=== PATIENT | female | born 1975 | race Hispanic/Latino ===

== ENCOUNTER 2016-12-03 09:24 | Day surgery (SDC) | payer OTHER ==
[2016-12-03] MEDS ORDERED: PEPCID PO NR (10:00)
[2016-12-03] MEDS ORDERED: VERSED IV NR (10:00)
[2016-12-03] MEDS ORDERED: NACL 0.9% 1000 ML 1,000 ML IV SCH (10:00)
[2016-12-03] MEDS ORDERED: SUBLIMAZE ONE ×2 (10:02→15:12)
[2016-12-03] MEDS ORDERED: DIPRIVAN 10 MG/ML IV ONE (10:02)
[2016-12-03] MEDS ORDERED: MARCAINE-EPI 0.25%-1:200,000 INFILTRATI ONE ×2 (10:50→15:12)
[2016-12-03] MEDS ORDERED: DEPO-MEDROL ONE (10:50)
--- NOTE | 2016-12-03 10:59 | Anesthesia Day of Surgery ---
Anesthesia Day of Surgery - Day of Surgery Patient Examined: Yes Patient H&P Reviewed: Yes Patient is NPO: Yes
[2016-12-03] MEDS ORDERED: TRANSDERM-SCOP TD NR (11:00)
--- NOTE | 2016-12-03 11:00 | Anesthesia Consultation ---
Anesthesia Consult and Med Hx Date of service: 12/03/16 - Airway Anesthetic Teeth Evaluation: Good ROM Head & Neck: Adequate Mental/Hyoid Distance: Adequate Mallampati Class: Class I Intubation Access Assessment: Good - Pulmonary Exam CTA: Yes - Cardiac Exam Cardiac Exam: RRR - Pre-Operative Health Status ASA Pre-Surgery Classification: ASA2 Proposed Anesthetic Plan: General - Pulmonary Hx Smoking: Yes (STOPPED X 1 YR-1/2 PPD X 20 YRS) Hx Asthma: No COPD: No Hx Pneumonia: No Hx Sleep Apnea: No (AIDAN PRE SCREEN LOW RISK.) - Cardiovascular System Hx Hypertension: No Hx Cardia Arrhythmia: Yes (h/o SVT resolved with ablation) - Central Nervous System Hx Neuromuscular Disorder: (Fibromyalgia) Hx Back Pain: Yes (CHRONIC PAIN TO BACK AND YVETTE THIGHS) Hx Psychiatric Problems: Yes (anxiety/depression) - Gastrointestinal Hx Gastroesophageal Reflux Disease: No - Endocrine Hx End Stage Renal Disease: No Hx Liver Disease: No Hx Non-Insulin Dependent Diabetes: No - Hematic Hx Anemia: Yes (NOT RECENT) - Other Systems Hx Cancer: No Hx Obesity: Yes - Additional Comments Anesthesia Medical History Comments: PONV
[2016-12-03] MEDS ORDERED: ZOFRAN IV NR (11:15)
[2016-12-03] MEDS ORDERED: DILAUDID IV ONE (11:15)
[2016-12-03] MEDS ORDERED: XYLOCAINE MPF 2% ONE (11:57)
[2016-12-03] MEDS ORDERED: DECADRON ONE ×2 (11:57→15:10)
[2016-12-03] MEDS ORDERED: ANCEF/STERILE WATER 2 GM/20 ML IV NR (12:00)
[2016-12-03] MEDS ORDERED: ZOFRAN ONE (12:03)
[2016-12-03] MEDS ORDERED: MARCAINE-EPI 0.25%-1:200,000 IJ ONE (12:11)
[2016-12-03] MEDS ORDERED: NACL 0.9% IR ONE ×2 (12:11)
[2016-12-03] MEDS ORDERED: DILAUDID ONE (12:52)
[2016-12-03] MEDS: DILAUDID IV PRN ×4 (13:17→14:10)
[2016-12-03] MEDS ORDERED: ZOFRAN IV PRN (13:20)
[2016-12-03] MEDS ORDERED: TORADOL IV PRN (13:45)
[2016-12-03] MEDS: SUBLIMAZE IV PRN ×2 (15:10→16:10)
[2016-12-03 16:55] VITALS: BP 141/62
--- NOTE | 2016-12-04 08:44 | Post Anesthesia Evaluation ---
- Post Anesthesia Evaluation Patient Participated: Yes Airway Patent: Yes Stable Respiratory Function: Yes Nausea/Vomiting: No Temp > 96.8F: Yes Pain Manageable: Yes Adequeate Hydration: Yes Anesthesia Complications: No Block Receding Appropriately: Not Applicable Patient on Ventilator: No
== END 2016-12-03 17:30 | disposition home or self-care (01) ==
LOC: OR 09:24
PROVIDERS: ATTEND Orthopaedic Surgery
DX: S83.232A Complex tear of medial meniscus, current injury, left knee, initial encounter (principal); M17.12 Unilateral primary osteoarthritis, left knee; M94.262 Chondromalacia, left knee; M65.862 Other synovitis and tenosynovitis, left lower leg; E66.9 Obesity, unspecified; Z68.37 Body mass index [BMI] 37.0-37.9, adult; Z87.891 Personal history of nicotine dependence; Z86.79 Personal history of other diseases of the circulatory system; Z88.2 Allergy status to sulfonamides; Z88.5 Allergy status to narcotic agent; X58.XXXA Exposure to other specified factors, initial encounter
CPT/HCPCS: 29876; 29881; 81025; A4217; J0690; J1100; J1170; J1885; J2250; J2405; J2704; J3010; J7030; J1030